=== PATIENT | female | born 1990 | race Caucasian/White ===

== ENCOUNTER 2016-12-30 12:10 | Emergency (ER) | payer SELFPAY | END 2016-12-30 14:33 | disposition left against medical advice (07) | LOC: E/R 12:10 → EDBD 12:10 → E/R 14:33 | DX: Z53.21 Procedure and treatment not carried out due to patient leaving prior to being seen by health care provider (principal) ==

== ENCOUNTER 2016-12-30 12:40 | Outpatient (CLI) | payer OTHER ==
[~2016-12-30] VITALS: Ht 160 cm; Wt 69.6 kg
[2016-12-30 13:03] VITALS: BP 109/59; PULSE 81; RESP 16; Ht 160 cm; Wt 69.6 kg
[2016-12-30 13:46] LABS: ADD SCAN DIFF NO
[2016-12-30 13:49] LABS: ADD UMIC YES; URINE BILIRUBIN (Dip) NEGATIVE (NEGATIVE); URINE BLOOD (Dip) NEGATIVE (NEGATIVE); URINE COLOR LT. YELLOW (YELLOW); URINE GLUCOSE (Dip) NEGATIVE (NEGATIVE); URINE KETONES (Dip) NEGATIVE (NEGATIVE); URINE LEUKOCYTE ESTERASE (Dip) 3+ (NEGATIVE); URINE NITRITE (Dip) NEGATIVE (NEGATIVE); URINE TOTAL PROTEIN (Dip) NEGATIVE (NEGATIVE); URINE UROBILINOGEN (Dip) 0.2 E.U./dL (0.1-1.0)
[2016-12-30 13:49] LABS: BASOPHILS % 0.3 % (0.0-2.0); EOSINOPHILS # 0.1 10^3/ul (0.0-0.5); EOSINOPHILS % 0.8 % (0.0-7.0); HEMATOCRIT 30.4 % (37.0-47.0); HEMOGLOBIN 10.6 g/dl (12.0-16.0); LYMPHOCYTES # 2.6 10^3/ul (0.8-2.9); LYMPHOCYTES % 22.4 % (15.0-51.0); MEAN CORPUSCULAR HEMOGLOBIN 32.1 pg (29.0-33.0); MEAN CORPUSCULAR HGB CONC 34.9 g/dl (32.0-37.0); MEAN CORPUSCULAR VOLUME 92.1 fl (82.0-101.0); MEAN PLATELET VOLUME 10.1 fl (7.4-10.4); MONOCYTE # 0.9 10^3/ul (0.3-0.9); MONOCYTES % 7.6 % (0.0-11.0); NEUTROPHIL # 7.6 10^3/ul (1.6-7.5); PLATELET COUNT 236 10^3/UL (140-415); RED CELL DISTRIBUTION WIDTH 12.4 % (11.5-14.5); WHITE BLOOD COUNT 11.7 10^3/ul (4.8-10.8)
[2016-12-30 14:06] LABS: URINE RBCS NONE SEEN /HPF (0)
[2016-12-30 14:07] LABS: SQUAMOUS EPITHELIAL CELL,UR MODERATE
[2016-12-30 14:23] LABS: ALBUMIN 3.2 g/dl (3.3-4.9); POTASSIUM 3.3 mmol/L (3.5-5.1)
[2016-12-30 14:25] LABS: CREATININE 0.38 mg/dl (0.44-1.00)
[2016-12-30 14:26] LABS: BILIRUBIN,INDIRECT 0.1 mg/dl (0-1.1); BILIRUBIN,TOTAL 0.1 mg/dl (0.2-1.3); TOTAL PROTEIN 6.4 g/dl (6.1-8.1)
[2016-12-30 14:27] LABS: CALCIUM 8.4 mg/dl (8.4-10.2)
--- NOTE | 2016-12-30 14:39 | RADRPT ---
PROCEDURE: Limited obstetric ultrasound CLINICAL INDICATION: Pain , labor TECHNIQUE: Multiple transverse and longitudinal grayscale images of the pelvis were obtained payan sabdominally and transvaginally.. COMPARISON: None FINDINGS: The cervix is closed with a length of 5.2 cm. There is a single viable intrauterine gestation. Cardiac activity is present with 153 beats per min anoop. There is a breech presentation. The placenta is posterior. There is no evidence for an abruption or placenta previa. RPTAT: AA IMPRESSION: Cervix length measures 5.2 cm. .José Luis Robertson MD, Date Time Electronically viewed and signed by .José Luis Robertson MD, on 12/30/2016 14:39 .S/
== END 2016-12-30 16:20 | disposition home or self-care (01) ==
LOC: OBT 12:40 → L-D 12:41 → OBT 16:20
PROVIDERS: ATTEND Obstetrics & Gynecology
DX: O26.892 Other specified pregnancy related conditions, second trimester (principal); R42 Dizziness and giddiness; R10.9 Unspecified abdominal pain; O60.02 Preterm labor without delivery, second trimester; Z3A.24 24 weeks gestation of pregnancy
CPT/HCPCS: 76817; 80053; 81001; 85025; Z7500; 81003; G0463